=== PATIENT | female | born 2000 | race African-American/Black ===

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

== ENCOUNTER 2022-02-21 22:09 | Emergency (ER) | payer OTHER ==
[2022-02-21 22:25] VITALS: RESP 16; TEMP 98.3
[2022-02-21 22:50] LABS: Appearance,Urine Cloudy (Clear); Bacteria,Urine Moderate /hpf; Bilirubin,Urine Negative (Negative); Blood,Urine Negative (Negative); Color,Urine Yellow; Glucose,Urine (UA) Negative (Negative); Ketones,Urine Negative (Negative); Leukocyte Esterase,Urine Moderate (Negative); Mucus,Urine Many /hpf; Nitrite,Urine Positive (Negative); PH, Urine 6.5 (5.0-8.0); Protein,Urine Trace (Negative); RBC,Urine 1 /hpf (0-5); Specific Gravity,Urine 1.028 (1.001-1.035); Squamous Epithelial Cell,Urine 5 /hpf (0-4); WBC,Urine 5 /hpf (0-5)
[2022-02-22] MEDS ORDERED: CEPHALEXIN 250 MG CAP PO STA (01:31)
[2022-02-22] MEDS ORDERED: ONDANSETRON ODT 4 MG TAB PO STA (01:31)
--- NOTE | 2022-02-22 01:31 | ED ---
General Adult HPI - General Chief complaint: Recheck/Abnormal Lab/Rx Stated complaint: Abd Pain over last week Time Seen by Provider: 02/21/22 23:17 Source: patient, RN notes reviewed Mode of arrival: ambulatory Limitations: no limitations - History of Present Illness Initial comments: 21-year-old female presents to the emergency department for evaluation of lower abdominal/pelvic pressure and painful urination 2 days. Reports she has had nausea over the course of the past week. Expresses concern for possible . Last menstrual period 01/17/2022. Complains of urinary frequency. Denies fever, chills, headache, chest pain, shortness of breath, vomiting, diarrhea, or dysuria. - Related Data Previous Rx's Medication Instructions Recorded Cephalexin [Keflex] 250 mg PO Q6HR 5 Days #20 cap 02/22/22 Pnv No.95/Ferrous Fum/Folic AC 1 each PO DAILY #30 tablet 02/22/22 [ Multivitamin Tablet] Allergies Allergy/AdvReac Type Severity Reaction Status Date / Time No Known Allergies Allergy Verified 02/13/22 17:18 Review of Systems ROS Statement: Those systems with pertinent positive or pertinent negative responses have been documented in the HPI. ROS Other: All systems not noted in ROS Statement are negative. Past Medical History Past Medical History: No Reported History History of Any Multi-Drug Resistant Organisms: None Reported Past Surgical History: No Surgical Hx Reported Past Psychological History: No Psychological Hx Reported Smoking Status: Current every day smoker Past Alcohol Use History: None Reported Past Drug Use History: Marijuana General Exam Limitations: no limitations General appearance: alert, in no apparent distress Respiratory exam: Present: normal lung sounds bilaterally. Absent: respiratory distress, wheezes, rales, rhonchi, stridor Cardiovascular Exam: Present: regular rate, normal rhythm, normal heart sounds. Absent: systolic murmur, diastolic murmur, rubs, gallop, clicks GI/Abdominal exam: Present: soft, normal bowel sounds. Absent: distended, tenderness, guarding, rebound, rigid Back exam: Present: normal inspection. Absent: CVA tenderness (R), CVA tenderness (L) Neurological exam: Present: alert, oriented X3, CN II-XII intact Psychiatric exam: Present: normal affect, normal mood Skin exam: Present: warm, dry, intact, normal color. Absent: rash Course Vital Signs 02/21/22 02/22/22 22:21 01:45 Temperature 98.3 F Pulse Rate 72 78 Respiratory 16 16 Rate Blood Pressure 105/65 112/82 O2 Sat by Pulse 98 98 Oximetry Medical Decision Making - Medical Decision Making This is a 21-year-old female, , who presents to the emergency department for evaluation of dysuria 2 days. Also complained of nausea and requested a test which was positive. Patient's urinalysis is nitrite positive with moderate leukocyte esterase therefore will be treated with Keflex for UTI. She has mild nausea and therefore was given a single dose of Zofran. She is not experiencing any abdominal pain, cramping, or vaginal bleeding/discharge at this time. She is prescribed vitamins and instructed to follow up with her HOT BOX CHECKER to establish care. Return parameters discussed in detail. Patient verbalizes understanding and agrees with this plan. Attending: Holly. - Lab Data Lab Results 02/21/22 02/21/22 Range/Units 22:30 22:30 Urine Color Yellow Urine Appearance Cloudy H (Clear) Urine pH 6.5 (5.0-8.0) Ur Specific [place] 1.028 (1.001-1.035) Urine Protein Trace H (Negative) Urine Glucose (UA) Negative (Negative) Urine Ketones Negative (Negative) Urine Blood Negative (Negative) Urine Nitrite Positive H (Negative) Urine Bilirubin Negative (Negative) Urine Urobilinogen 4.0 (<2.0) mg/dL Ur Leukocyte Esterase Moderate H (Negative) Urine RBC 1 (0-5) /hpf Urine WBC 5 (0-5) /hpf Ur Squamous Epith Cells 5 H (0-4) /hpf Urine Bacteria Moderate H (None) /hpf Urine Mucus Many H (None) /hpf Urine HCG, Qual Detected (Not Detectd) Disposition Clinical Impression: Acute cystitis during in first trimester Disposition: HOME SELF-CARE Condition: Stable Additional Instructions: Take antibiotic as directed. Increase intake of fluids. Obtained vitamin and begin taking. Follow-up with HOT BOX CHECKER for further evaluation and treatment. Return to the emergency department with any new, worsening, or concerning symptoms. Prescriptions: Cephalexin [Keflex] 250 mg PO Q6HR 5 Days #20 cap Pnv No.95/Ferrous Fum/Folic AC [ Multivitamin Tablet] 1 each PO DAILY #30 tablet Is patient prescribed a controlled substance at d/c from ED?: No Referrals: Florence Nuñez DO [Doctor of Osteopathic Medicine] - 1-2 days Time of Disposition: 01:31
[2022-02-22 01:46] VITALS: BP 112/82; PULSE 78
== END 2022-02-22 01:45 | disposition home or self-care (01) ==
LOC: EC 22:09
DX: O23.11 Infections of bladder in pregnancy, first trimester (principal); N30.00 Acute cystitis without hematuria; O99.331 Smoking (tobacco) complicating pregnancy, first trimester; F17.200 Nicotine dependence, unspecified, uncomplicated; Z3A.00 Weeks of gestation of pregnancy not specified
CPT/HCPCS: 81001; 81025; 99284

== ENCOUNTER 2022-04-27 11:46 | Emergency (ER) | payer OTHER ==
[2022-04-27 11:57] VITALS: BP 100/52; PULSE 77; RESP 18; TEMP 98
[2022-04-27] MEDS ORDERED: diphenhydrAMINE 25 MG CAP PO STA (12:35)
--- NOTE | 2022-04-27 13:25 | ED ---
Allergic Reaction HPI - General Chief complaint: Allergic Reaction Stated complaint: swollen upper lip Time Seen by Provider: 04/27/22 12:22 Source: patient Mode of arrival: ambulatory Limitations: no limitations - History of Present Illness Initial Comments: Patient is a 21-year-old female currently 14 weeks presenting with chief complaint of upper lip swelling. Patient states when she woke up this morning she felt a heaviness over her upper lip, she then noticed that it was swelling on inspection. Patient states that throughout the morning the swelling has gone down, but she "just wanted to get checked out". She denies any shortness of breath, wheezing, difficulty swallowing. She denies any pain, rash, fever, chills, nausea, vomiting, chest pain, abdominal pain, history of ALLERGIES. She denies any new foods, medications, products. - Related Data Previous Rx's Medication Instructions Recorded Cephalexin [Keflex] 250 mg PO Q6HR 5 Days #20 cap 02/22/22 Pnv No.95/Ferrous Fum/Folic AC 1 each PO DAILY #30 tablet 02/22/22 [ Multivitamin Tablet] Allergies Allergy/AdvReac Type Severity Reaction Status Date / Time No Known Allergies Allergy Verified 04/27/22 11:56 Review of Systems ROS Statement: Those systems with pertinent positive or pertinent negative responses have been documented in the HPI. ROS Other: All systems not noted in ROS Statement are negative. Past Medical History Past Medical History: No Reported History History of Any Multi-Drug Resistant Organisms: None Reported Past Surgical History: No Surgical Hx Reported Past Psychological History: No Psychological Hx Reported Smoking Status: Current every day smoker Past Alcohol Use History: None Reported Past Drug Use History: Marijuana General Exam Limitations: no limitations General appearance: alert, in no apparent distress Head exam: Present: atraumatic, normocephalic, normal inspection Eye exam: Present: normal appearance, EOMI. Absent: scleral icterus, periorbital swelling ENT exam: Present: mucous membranes moist Expanded Mouth exam: Present: other (Some swelling to the upper lip) Neck exam: Present: normal inspection Respiratory exam: Present: normal lung sounds bilaterally. Absent: respiratory distress, wheezes, rales, rhonchi, stridor Cardiovascular Exam: Present: regular rate, normal rhythm, normal heart sounds. Absent: systolic murmur, diastolic murmur, rubs, gallop, clicks Neurological exam: Present: alert, oriented X3, CN II-XII intact Psychiatric exam: Present: normal affect, normal mood Skin exam: Present: warm, dry, intact, normal color. Absent: rash Course Vital Signs 04/27/22 11:54 Temperature 98.0 F Pulse Rate 77 Respiratory 18 Rate Blood Pressure 100/52 O2 Sat by Pulse 100 Oximetry Medical Decision Making - Medical Decision Making Patient is a 21-year-old female presenting with chief complaint of upper lip swelling. She denies any new foods, medications, products. She denies any pain. She states symptoms have improved throughout the morning without any medication, but she just wanted to ensure everything was okay. She is currently 14 weeks . On examination there is mild swelling to the upper lip. N ormal oropharynx, heart and lungs are clear to auscultation, no indications of difficulty breathing or swallowing. Patient is given some Benadryl. Instructed to follow-up with PCP and SPEECH ASSISTANT. Report back to ER with any new or worsening symptoms. Discussed return parameters answered all questions. May continue taking Benadryl as needed per package instructions. Patient conveyed verbal understanding and agreed to the plan. I discussed this case with my attending Dr. Rojas. Disposition Clinical Impression: Allergic reaction Disposition: HOME SELF-CARE Condition: Good Instructions (If sedation given, give patient instructions): General Allergic Reaction (ED) Additional Instructions: Follow-up with PCP and SPEECH ASSISTANT. Report back to ER with any new or worsening symptoms. Take Benadryl as needed per package instructions. Is patient prescribed a controlled substance at d/c from ED?: No Referrals: Lori Valenzuela MD [Primary Care Provider] - 1-2 days Time of Disposition: 13:25
== END 2022-04-27 13:32 | disposition home or self-care (01) ==
LOC: EC 11:46
DX: O99.712 Diseases of the skin and subcutaneous tissue complicating pregnancy, second trimester (principal); F17.200 Nicotine dependence, unspecified, uncomplicated; Z3A.14 14 weeks gestation of pregnancy
CPT/HCPCS: 99283

== ENCOUNTER 2022-05-01 07:39 | Emergency (ER) | payer OTHER ==
[2022-05-01 07:46] VITALS: BP 116/62; PULSE 61; RESP 18; TEMP 98.2
[2022-05-01] MEDS ORDERED: predniSONE 20 MG TAB PO STA (08:47)
[2022-05-01] MEDS ORDERED: FAMOTIDINE 20 MG TAB PO STA (08:47)
[2022-05-01] MEDS ORDERED: diphenhydrAMINE 50 MG CAP PO STA (08:47)
--- NOTE | 2022-05-01 08:52 | ED ---
General Adult HPI - General Chief complaint: Allergic Reaction Stated complaint: revisit - upper lip swelling Time Seen by Provider: 05/01/22 07:50 Source: patient, family, RN notes reviewed Mode of arrival: ambulatory Limitations: no limitations - History of Present Illness Initial comments: Patient is a pleasant 21-year-old female presenting to the emergency Department with upper lip swelling. Patient was here in emergency Department a couple of days ago with similar symptoms. Benadryl did help significantly. Symptoms started again last night. Patient only has minimal discomfort. No swelling of the lower lip, tongue or throat. No dyspnea. No history of similar symptoms previously. No new exposures. Patient is 14 weeks gravid. No pelvic pain or vaginal bleeding. - Related Data Previous Rx's Medication Instructions Recorded Cephalexin [Keflex] 250 mg PO Q6HR 5 Days #20 cap 02/22/22 Pnv No.95/Ferrous Fum/Folic AC 1 each PO DAILY #30 tablet 02/22/22 [ Multivitamin Tablet] Famotidine [Pepcid] 20 mg PO BID #10 tablet 05/01/22 diphenhydrAMINE [Benadryl] 25 mg PO QID #20 capsule 05/01/22 predniSONE [Deltasone] 20 mg PO DAILY #4 tab 05/01/22 Allergies Allergy/AdvReac Type Severity Reaction Status Date / Time No Known Allergies Allergy Verified 05/01/22 07:45 Review of Systems ROS Statement: Those systems with pertinent positive or pertinent negative responses have been documented in the HPI. ROS Other: All systems not noted in ROS Statement are negative. Constitutional: Denies: fever Eyes: Denies: eye pain ENT: Reports: as per HPI. Denies: ear pain Respiratory: Denies: cough, dyspnea Cardiovascular: Denies: chest pain Endocrine: Denies: fatigue Gastrointestinal: Denies: abdominal pain Genitourinary: Denies: dysuria Musculoskeletal: Denies: back pain Skin: Denies: rash Past Medical History Past Medical History: No Reported History History of Any Multi-Drug Resistant Organisms: None Reported Past Surgical History: No Surgical Hx Reported Past Psychological History: No Psychological Hx Reported Smoking Status: Current every day smoker Past Alcohol Use History: None Reported Past Drug Use History: Marijuana General Exam Limitations: no limitations General appearance: alert, in no apparent distress Head exam: Present: normocephalic Eye exam: Present: normal appearance ENT exam: Present: other (Moderate angioedema of the upper lip alone. No edema of the lower lip or tongue or posterior pharynx or uvula) Respiratory exam: Present: normal lung sounds bilaterally. Absent: respiratory distress, wheezes Cardiovascular Exam: Present: regular rate, normal rhythm GI/Abdominal exam: Present: soft. Absent: tenderness Extremities exam: Present: normal inspection Neurological exam: Present: alert Psychiatric exam: Present: normal affect, normal mood Skin exam: Present: normal color Course Vital Signs 05/01/22 07:41 Temperature 98.2 F Pulse Rate 61 Respiratory 18 Rate Blood Pressure 116/62 O2 Sat by Pulse 100 Oximetry Disposition Clinical Impression: Angioedema Disposition: HOME SELF-CARE Condition: Stable Instructions (If sedation given, give patient instructions): Angioedema (ED) Additional Instructions: Please follow-up with primary care physician as well as [facility] COUNSEL[facility] in the next couple days for recheck. Return for difficulty in breathing, swelling of the throat, tongue or increased swelling of the lips, worsening symptoms or any other concerns. Prescriptions have been sent to pharmacy. Prescriptions: diphenhydrAMINE [Benadryl] 25 mg PO QID #20 capsule predniSONE [Deltasone] 20 mg PO DAILY #4 tab Famotidine [Pepcid] 20 mg PO BID #10 tablet Is patient prescribed a controlled substance at d/c from ED?: No Referrals: Lori Valenzuela MD [Primary Care Provider] - 1-2 days Roselyn Aguilar DO [Doctor of Osteopathic Medicine] - 1-2 days Time of Disposition: 08:50
== END 2022-05-01 09:00 | disposition home or self-care (01) ==
LOC: EC 07:39
DX: T78.3XXA Angioneurotic edema, initial encounter (principal); F17.200 Nicotine dependence, unspecified, uncomplicated; F12.90 Cannabis use, unspecified, uncomplicated
CPT/HCPCS: 99283; J7512

== ENCOUNTER 2024-01-23 15:25 | Inpatient (IN) | payer OTHER ==
[2024-01-23] MEDS ORDERED: TRANEXAMIC 1,000 MG/100ML-NACL 1,000 MG in EMPTY BAG 1 BAG IV PRN (15:53)
[2024-01-23] MEDS ORDERED: miSOPROStoL 200 MCG TAB PO PRN (15:53)
[2024-01-23] MEDS ORDERED: OXYTOCIN 10 UNIT/ML 1 ML VIAL IM PRN (15:53)
[2024-01-23] MEDS ORDERED: LIDOCAINE 0.5% (PF) 5 MG/ML (50 ML SDV) SQ PRN (15:53)
[2024-01-23] MEDS ORDERED: CARBOPROST TROMETHAMINE 250 MCG/ML 1 ML AMP IM PRN (15:53)
[2024-01-23] MEDS ORDERED: METHYLERGONOVINE 0.2 MG/ML 1 ML AMP IM PRN (15:53)
[2024-01-23] MEDS ORDERED: TERBUTALINE 1 MG/ML VIAL SQ PRN (15:53)
[2024-01-23] MEDS: LACTATED RINGERS 1,000 ML IV SCH (16:18)
[2024-01-23] MEDS: AMPICILLIN 2,000 MG in SODIUM CHLORIDE 0.9% 100 ML IVPB STA (16:27)
[2024-01-23 16:34] LABS: Basophils % (A) 0 %; Eosinophils # (A) 0.2 k/uL (0-0.7); Eosinophils % (A) 1 %; HCT 29.4 % (34.0-46.0); HGB 9.6 gm/dL (11.4-16.0); Lymphocytes # (A) 1.9 k/uL (1.0-4.8); Lymphocytes % (A) 10 %; MCHC 32.5 g/dL (31.0-37.0); MCV 89.3 fL (80.0-100.0); Mean Platelet Volume 7.1; Monocytes % (A) 5 %; Neutrophils # (A) 15.4 k/uL (1.3-7.7); Neutrophils % (A) 82 %; Platelet Count 328 k/uL (150-450); RBC 3.29 m/uL (3.80-5.40); RDW 13.3 % (11.5-15.5); WBC 18.7 k/uL (3.8-10.6)
[2024-01-23 18:07] LABS: Amphetamine Screen,Urine Not Detected (NotDetected); Barbiturate Screen,Urine Not Detected (NotDetected); Benzodiazepines Screen,Urine Not Detected (NotDetected); Cocaine Screen,Urine Detected (NotDetected); Methadone Screen, Urine Not Detected (NotDetected); Opiate Screen,Urine Not Detected (NotDetected); Oxycodone Screen, Urine Not Detected (NotDetected); Phencyclidine Screen,Urine Not Detected (NotDetected); Tricyclic Antidepressant,Urine Not Detected (NotDetected); Urn Cannabinoid Scrn Detected (NotDetected)
[2024-01-23] MEDS: OXYTOCIN 30 UNITS/500 ML NS 30 UNIT in SALINE 1 500ML.BAG IV SCH (20:22)
[2024-01-23] MEDS ORDERED: SIMETHICONE 80 MG CHEWABLE PO PRN (20:38)
[2024-01-23] MEDS ORDERED: HYDROCORTISONE 2.5% RECTAL CREAM 30 GM TUBE RECTAL PRN (20:38)
[2024-01-23] MEDS ORDERED: diphenhydrAMINE 25 MG CAP PO PRN (20:38)
[2024-01-23] MEDS ORDERED: diphenhydrAMINE 50 MG CAP PO PRN (20:38)
[2024-01-23] MEDS ORDERED: diphenhydrAMINE 50 MG/ML 1 ML VIAL IVP PRN ×2 (20:38)
[2024-01-23] MEDS ORDERED: LANOLIN CREAM 1 GM TUBE TOPICAL PRN (20:38)
[2024-01-23] MEDS ORDERED: ZOLPIDEM 5 MG TAB PO PRN (20:38)
[2024-01-23] MEDS ORDERED: BENZOCAINE/MENTHOL SPRAY 1 GM/SPRAY AEROSOL TOPICAL PRN (20:38)
[2024-01-23] MEDS: IBUPROFEN 600 MG TAB PO PRN (20:53)
[2024-01-23] MEDS: AMPICILLIN 1,000 MG in SODIUM CHLORIDE 0.9% 50 ML IVPB SCH (21:43)
[2024-01-24] MEDS: ACETAMINOPHEN TAB 325 MG TAB PO PRN (00:04)
[2024-01-24 04:51] VITALS: RESP 16
[2024-01-24 05:30] LABS: Basophils % (A) 0 %; Eosinophils # (A) 0.1 k/uL (0-0.7); Eosinophils % (A) 1 %; HGB 9.2 gm/dL (11.4-16.0); Lymphocytes # (A) 2.2 k/uL (1.0-4.8); Lymphocytes % (A) 14 %; MCH 29.3 pg (25.0-35.0); MCHC 32.8 g/dL (31.0-37.0); MCV 89.5 fL (80.0-100.0); Mean Platelet Volume 7.1; Monocytes % (A) 6 %; Neutrophils # (A) 12.3 k/uL (1.3-7.7); Neutrophils % (A) 78 %; Platelet Count 308 k/uL (150-450); RBC 3.13 m/uL (3.80-5.40); RDW 13.2 % (11.5-15.5); WBC 15.9 k/uL (3.8-10.6)
[2024-01-24] MEDS: SENNOSIDES-DOCUSATE SODIUM 1 EACH TAB PO SCH (10:32)
--- NOTE | 2024-01-24 11:20 | P.HPOB ---
History of Present Illness H&P Date: 01/23/24 Chief Complaint: normal labor 23 year old presents at 36 weeks 6 days with Spontaneous rupture membranes and in active labor. Her cervix was 5-7 cm dilated, 80% effaced, -2 station. She was adamaris every 6-7 minutes. heart tones 135 with moderate variability and reactive. Review of Systems All systems: negative Constitutional: Denies chills, Denies fever Eyes: denies blurred vision, denies pain Ears, nose, mouth and throat: Denies headache, Denies sore throat Cardiovascular: Denies chest pain, Denies shortness of breath Respiratory: Denies cough Gastrointestinal: Denies abdominal pain, Denies diarrhea, Denies nausea, Denies vomiting Genitourinary: Denies dysuria, Denies hematuria Musculoskeletal: Denies myalgias Integumentary: Denies pruritus, Denies rash Neurological: Denies numbness, Denies weakness Psychiatric: Denies anxiety, Denies depression Endocrine: Denies fatigue, Denies weight change Past Medical History Past Medical History: No Reported History Additional Past Medical History / Comment(s): Obstetric history: She has had 2 previous vaginal deliveries. She got care with this baby at [facility] in [place]. 8 positive antibodies negative rubella immune, hepatitis B negative, HIV negative. She has been positive for cocaine and marijuana in the past and is positive for that again today. History of Any Multi-Drug Resistant Organisms: None Reported Past Surgical History: No Surgical Hx Reported Past Anesthesia/Blood Transfusion Reactions: No Reported Reaction Past Psychological History: No Psychological Hx Reported Smoking Status: Current every day smoker Past Alcohol Use History: None Reported Past Drug Use History: Marijuana Medications and Allergies Home Medications Medication Instructions Recorded Confirmed Type Pnv No.95/Ferrous Fum/Folic AC 1 each PO DAILY #30 tablet 02/22/22 01/23/24 Rx [ Multivitamin Tablet] Allergies Allergy/AdvReac Type Severity Reaction Status Date / Time No Known Allergies Allergy Verified 01/23/24 15:41 Exam Osteopathic Statement: *. No significant issues noted on an osteopathic structural exam other than those noted in the History and Physical/Consult. Vital Signs Temp Pulse Resp BP Pulse Ox 01/24/24 07:55 98.7 F 80 16 108/52 01/24/24 04:00 98.2 F 71 16 103/56 98 01/24/24 00:00 97.7 F 72 18 102/60 100 01/23/24 22:31 97.7 F 61 18 133/82 01/23/24 22:16 69 18 138/81 01/23/24 22:01 55 L 20 122/76 01/23/24 21:45 78 18 133/60 01/23/24 21:31 64 18 121/78 01/23/24 21:16 77 18 138/89 01/23/24 21:01 78 18 133/84 01/23/24 20:46 67 18 127/78 01/23/24 20:31 96.5 F L 75 139/65 01/23/24 16:21 98.1 F 83 18 133/76 01/23/24 15:49 97.4 F L 95 16 130/74 Intake and Output 01/23/24 01/24/24 01/24/24 22:59 06:59 14:59 Intake Total 183.7 Output Total 200 Balance -16.3 Intake: Intake, IV Titration 183.7 Amount Oxytocin 30 Units/500 ml 183.7 Ns 30 unit In Saline 1 500ml.bag @ Per Protocol IV .Q0M [facility] Rx#:[id number] Output: Output, Quantitative 200 Blood Loss Other: # Voids 1 1 Weight 75.75 kg Heart: Regular rate and rhythm Lungs: Clear to auscultation bilaterally Abdomen: Soft, nontender Extremities: Negative Homans sign Results Result Diagrams: 01/24/24 04:52 Abnormal Lab Results - Last 24 Hours (Table) 01/23/24 01/23/24 01/24/24 Range/Units 16:15 17:28 04:52 WBC 18.7 H 15.9 H (3.8-10.6) k/uL RBC 3.29 L 3.13 L (3.80-5.40) m/uL Hgb 9.6 L 9.2 L (11.4-16.0) gm/dL Hct 29.4 L 28.0 L (34.0-46.0) % Neutrophils # 15.4 H 12.3 H (1.3-7.7) k/uL Urine Cocaine Screen Detected H (NotDetected) U Marijuana (THC) Screen Detected H (NotDetected) Assessment and Plan (1) labor Current Visit: Yes Status: Acute Code(s): O60.00 - LABOR WITHOUT D ELIVERY, UNSPECIFIED TRIMESTER SNOMED Code(s): 8162342 (2) premature rupture of membranes Current Visit: Yes Status: Acute Code(s): O42.919 - PRETRM MARTIN ROM, UNSP TIME BETW RUPT AND ONST LABR, UNSP TRI SNOMED Code(s): 277793213 Plan: 1. Antibiotics for GBS prophylaxis 2. Expectant management 3. Anticipate normal vaginal delivery
--- NOTE | 2024-01-24 11:21 | P.PROBDLV ---
Vaginal Delivery Note - . Vaginal Delivery Note: 23 year old presents at 36 weeks 2 days with Spontaneous rupture membranes and in active labor. Her cervix was 5-7 cm dilated, 80% effaced, -2 station. She was adamaris every 6-7 minutes. heart tones 135 with moderate variability and reactive. Her water broke around 1500 and her fluid was clear. She slowly got more uncomfortable and was adamaris every 3-5 minutes. When her cervix was 8 cm dilated she was very uncomfortable but dealing with the contractions well. She was soon complete and pushed a viable male over intact perineum at 2019. Head delivered MAYA, anterior shoulder delivered gentle downward guidance follow-up by posterior shoulder and rest of body. Nose and mouth bulb suctioned, cord clamped and cut, placed on mother's abdomen. Apgars 8, 9, weight 5 lbs. 10 oz. Placenta delivered spontaneously, intact with three-vessel cord at 2021. Gen., cervix, perineum inspected. No lacerations noted. Estimated blood loss 200 mL. Mother and baby in stable condition.
--- NOTE | 2024-01-24 11:23 | P.PNOBGVD ---
Subjective - Subjective Principal diagnosis: Status post normal vaginal delivery day #1 Interval history: Patient seen and examined. Denies nausea, vomiting, chest pain, shortness of breath or calf pain. Patient says that she did smoke some marijuana during but denies cocaine use though was positive and her drug screen. Patient reports: Reports appetite normal, Reports voiding normally, Reports pain well controlled, Reports ambulating normally Melvin: doing well Objective - Latest Vital Signs Latest vital signs: Vital Signs Temp Pulse Resp BP Pulse Ox 01/24/24 07:55 98.7 F 80 16 108/52 01/24/24 04:00 98.2 F 71 16 103/56 98 01/24/24 00:00 97.7 F 72 18 102/60 100 01/23/24 22:31 97.7 F 61 18 133/82 01/23/24 22:16 69 18 138/81 01/23/24 22:01 55 L 20 122/76 01/23/24 21:45 78 18 133/60 01/23/24 21:31 64 18 121/78 01/23/24 21:16 77 18 138/89 01/23/24 21:01 78 18 133/84 01/23/24 20:46 67 18 127/78 01/23/24 20:31 96.5 F L 75 139/65 01/23/24 16:21 98.1 F 83 18 133/76 01/23/24 15:49 97.4 F L 95 16 130/74 Intake and Output 01/23/24 01/24/24 01/24/24 22:59 06:59 14:59 Intake Total 183.7 Output Total 200 Balance -16.3 Intake: Intake, IV Titration 183.7 Amount Oxytocin 30 Units/500 ml 183.7 Ns 30 unit In Saline 1 500ml.bag @ Per Protocol IV .Q0M [facility] Rx#:[id number] Output: Output, Quantitative 200 Blood Loss Other: # Voids 1 1 Weight 75.75 kg - Exam Lungs: bilateral: normal Chest: Normal S1, Normal S2 Extremities: Present: normal Abdomen: Present: normal appearance, soft Uterus: Present: normal, firm - Labs Labs: Abnormal Lab Results - Last 24 Hours (Table) 01/23/24 01/23/24 01/24/24 Range/Units 16:15 17:28 04:52 WBC 18.7 H 15.9 H (3.8-10.6) k/uL RBC 3.29 L 3.13 L (3.80-5.40) m/uL Hgb 9.6 L 9.2 L (11.4-16.0) gm/dL Hct 29.4 L 28.0 L (34.0-46.0) % Neutrophils # 15.4 H 12.3 H (1.3-7.7) k/uL Urine Cocaine Screen Detected H (NotDetected) U Marijuana (THC) Screen Detected H (NotDetected) Assessment and Plan (1) labor Current Visit: Yes Status: Acute Code(s): O60.00 - LABOR WITHOUT DELIVERY, UNSPECIFIED TRIMESTER SNOMED Code(s): 0767352 (2) premature rupture of membranes Current Visit: Yes Status: Acute Code(s): O42.919 - PRETRM MARTIN ROM, UNSP TIME BETW RUPT AND ONST LABR, UNSP TRI SNOMED Code(s): 133750856 Plan: 1. Continue care
--- NOTE | 2024-01-25 08:14 | P.DS ---
Providers Date of admission: 01/23/24 15:49 Expected date of discharge: 01/25/24 Attending physician: Florence Nuñez Primary care physician: Stated None - Discharge Diagnosis(es) (1) labor Current Visit: Yes Status: Resolved (2) premature rupture of membranes Current Visit: Yes Status: Resolved (3) Status post normal delivery Current Visit: Yes Status: Acute Hospital Course: Patient presented with spontaneous rupture of membranes and in labor. She underwent a normal vaginal delivery. Her UDS was positive for cocaine and marijuana. The baby is in the nursery for an MELVI scoring. Patient denies nausea, vomiting, chest pain, shortness of breath or calf pain. She'll be discharged home day #2 in stable condition to follow-up with me in 6 weeks. Plan - Discharge Summary New Discharge Prescriptions: New Ibuprofen [Motrin] 600 mg PO Q6HR PRN #30 tab PRN Reason: Mild Pain (Scale 1 To 3) No Action Pnv No.95/Ferrous Fum/Folic AC [ Multivitamin Tablet] 1 each PO DAILY #30 tablet Discharge Medication List Pnv No.95/Ferrous Fum/Folic AC [ Multivitamin Tablet] 1 each PO DAILY #30 tablet 02/22/22 [Rx] Ibuprofen [Motrin] 600 mg PO Q6HR PRN #30 tab 01/25/24 [Rx] Follow up Appointment(s)/Referral(s): Florence Nuñez DO [Doctor of Osteopathic Medicine] - 6 Weeks Discharge Disposition: HOME SELF-CARE
--- NOTE | 2024-01-25 08:19 | P.MSEPDOC ---
Presenting Problems - Arrival Data Date of Arrival on Unit: 01/23/24 Time of Arrival on Unit: 15:30 Mode of Transport: Wheelchair - Complaint OB-Reason for Admission/Chief Complaint: Rule Out SROM Comment: srom , possitive amisure. 37 1/7 weeks. was to deliver at [facility]. contx and dilated 4 cm Medical History - Information : 3 Para: 1 Term: 1 : 0 Abortions: Spontaneous or Elective: 0 Number of Living Children: 0 - Gestational Age Gestational Age by KATI (wks/days): 37 Weeks and 1 Days - History Complications: Smoker, Hx. Substance Abuse Comment: thc use with preg. Review of Systems - Review of Systems Constitutional: No problems Breast: No problems ENT: No problems Cardiovascular: No problems Respiratory: No problems Gastrointestinal: No problems Genitourinary: No problems Musculoskeletal: No problems Neurological: No problems Skin: No problems Vital Signs - Temperature Temperature: 98.2 F Temperature Source: Oral - Pulse Right Radial Pulse Rate: 83 Pulse Assessment Method: Automatic Cuff - Respirations Respiratory Rate: 16 Oxygen Delivery Method: Room Air - Blood Pressure Right Arm Blood Pressure: 121/79 Blood Pressure Mean: 93 Blood Pressure Source: Automatic Cuff Medical Screen Scoring - Cervical Exam Dilation (cm): 4 Effacement (%): 80 Membranes: Ruptured - Uterine Contractions Intensity: Mild Resting: Soft to palpation - Assessment - Baby A Baseline FHR: 130 Heart Rate - NICHD Category: Category I (Normal) NST: Reactive Physician Notification - Physician Notified New Order Received: Yes - Notification Comment Comment: reported UDS pos in July 2023( visit) and today for Cocaine and THC. Orders received to admit infant to the L1N 1 hr after delivery for MELVI per protocol. Maternal Triage Index - Non-Urgent/Priority 4 Non-Urgent Priority 4: Yes Criteria Met for Priority 4: srom. dilated 4cm , contx Disposition - Disposition OB Disposition: Admit I agree with the RN Medical Screening Exam: Yes Case reviewed; plan agreed upon as documented in EMR&OBIX.: Yes Diagnosis: ENCOUNTER FOR FULL-TERM UNCOMPLICATED DELIVERY
[2024-01-25 08:30] VITALS: BP 121/79; PULSE 83; TEMP 98.2
== END 2024-01-25 09:30 | disposition home or self-care (01) | DRG 560 ==
LOC: FBPOP 15:25 → 4FBP 15:49
PROVIDERS: ADMIT Obstetrics & Gynecology; ATTEND Obstetrics & Gynecology
PROC: 10E0XZZ Delivery of Products of Conception, External Approach (ICD-10-PCS; principal; 2024-01-23)
DX: O42.913 Preterm premature rupture of membranes, unspecified as to length of time between rupture and onset of labor, third trimester (principal); F12.90 Cannabis use, unspecified, uncomplicated; F17.210 Nicotine dependence, cigarettes, uncomplicated; O60.14X0 Preterm labor third trimester with preterm delivery third trimester, not applicable or unspecified; O99.324 Drug use complicating childbirth; O99.334 Smoking (tobacco) complicating childbirth; Z37.0 Single live birth; Z3A.36 36 weeks gestation of pregnancy; F14.90 Cocaine use, unspecified, uncomplicated
CPT/HCPCS: 59025; 80306; 85025; 86850; 86900; 86901; 88307; 99213

== ENCOUNTER 2025-03-09 20:33 | Emergency (ER) | payer OTHER ==
--- NOTE | 2025-03-09 21:10 | ED ---
Female Urogenital HPI - General Chief complaint: Vaginal Bleeding Stated complaint: Vaginal Bleeding, Cramps Time Seen by Provider: 03/09/25 21:09 Source: patient, RN notes reviewed Mode of arrival: ambulatory Limitations: no limitations - History of Present Illness Initial comments: 24-year-old G4, P3 female presenting to the ER for evaluation of vaginal bleeding. Patient states the first day of her last menstrual cycle was 02-25-2025. She states 2 days ago she took a test which was positive. Upon waking up today patient noted to have light brown spotting. She states throughout the day this has increased and she is changing a pad every 1-2 hours. Patient also was endorsing lower abdominal cramping and back cramping. She denies any fevers, chills, nausea, vomiting, chest pain, shortness of breath, urinary complaints, change in bowel habits or peripheral edema. - Related Data Previous Rx's Medication Instructions Recorded Pnv No.95/Ferrous Fum/Folic AC 1 each PO DAILY #30 tablet 02/22/22 [ Multivitamin Tablet] Ibuprofen [Motrin] 600 mg PO Q6HR PRN #30 tab 01/25/24 Kdu-Qhlh-Aofod Acid 1 each PO DAILY #30 cap 03/10/25 [-U Capsule] Allergies Allergy/AdvReac Type Severity Reaction Status Date / Time No Known Allergies Allergy Verified 03/09/25 20:42 Review of Systems ROS Statement: Those systems with pertinent positive or pertinent negative responses have been documented in the HPI. ROS Other: All systems not noted in ROS Statement are negative. Past Medical History Past Medical History: No Reported History Additional Past Medical History / Comment(s): Obstetric history: She has had 2 previous vaginal deliveries. She got care with this baby at [facility] in [place]. 8 positive antibodies negative rubella immune, hepatitis B negative, HIV negative. She has been positive for cocaine and marijuana in the past and is positive for that again today. History of Any Multi-Drug Resistant Organisms: None Reported Past Surgical History: No Surgical Hx Reported Past Anesthesia/Blood Transfusion Reactions: No Reported Reaction Past Psychological History: No Psychological Hx Reported Smoking Status: Current every day smoker Past Alcohol Use History: None Reported Past Drug Use History: Marijuana General Exam Limitations: no limitations General appearance: alert, in no apparent distress Respiratory exam: Present: normal lung sounds bilaterally. Absent: respiratory distress, wheezes, rales, rhonchi, stridor Cardiovascular Exam: Present: regular rate, normal rhythm, normal heart sounds. Absent: systolic murmur, diastolic murmur, rubs, gallop, clicks GI/Abdominal exam: Present: soft, tenderness (Suprapubic), normal bowel sounds Extremities exam: Present: normal inspection, full ROM, normal capillary refill. Absent: tenderness, pedal edema, joint swelling, calf tenderness Neurological exam: Present: alert, oriented X3, CN II-XII intact Skin exam: Present: warm, dry, intact, normal color. Absent: rash Course Vital Signs 03/09/25 03/10/25 20:39 03:05 Temperature 98.3 F 98.4 F Pulse Rate 77 66 Respiratory 17 18 Rate Blood Pressure 112/80 116/66 O2 Sat by Pulse 99 100 Oximetry - Reevaluation(s) Reevaluation #1: 03/10/25 03:58 Case discussed with on-call [employer], Dr. Tran. She advised on repeat hCG in 48 hours and repeat ultrasounds outpatient Medical Decision Making - Medical Decision Making Was pt. sent in by a medical professional or institution (, PA, ANIMAL PATHOLOGIST, urgent care, hospital, or [place] health care facility...) When possible be specific @ -[No] Did you speak to anyone other than the patient for history (EMS, parent, family, police, friend...)? What history was obtained from this source @ -[No] Did you review nursing and triage notes (agree or disagree)? Why? @ -[I reviewed and agree with nursing and triage notes] Were old charts reviewed (outside hosp., previous admission, EMS record, old EKG, old radiological studies, urgent care reports/EKG's, [place] health care facility records)? Report findings @ -Blood type reviewed collected on 01-23-2024 blood type B+. Differential Diagnosis (chest pain, altered mental status, abdominal pain women, abdominal pain men, vaginal bleeding, weakness, fever, dyspnea, syncope, headache, dizziness, GI bleed, back pain, seizure, CVA, palpatations, mental health, musculoskeletal)? @ -Differential Vaginal Bleeding:Spontaneous , threatened , molar , ectopic , bloody show, incompetent cervix, abruptioplacenta, placenta previa, uterine rupture, dysfunctional uterine bleeding, hemorrhage, uterine fibroids, this is not meant to be an all-inclusive list. EKG interpreted by me (3pts min.). @ -[None done X-rays interpreted by me (1pt min.). @ -[None done] CT interpreted by me (1pt min.). @ -[None done] U/S interpreted by me (1pt. min.). @ -Obstetrical ultrasound remarkable for a 2.6 cm right adnexal cystic and solid lesion. Could represent corpus luteal cyst or ectopic . No definitive right ovarian tissue. Heterogeneous 1.9 cm left ovarian lesion also present. No intrauterine gestation. No left ovarian torsion No left ovarian torsion. What testing was considered but not performed or refused? (CT, X-rays, U/S, labs)? Why? @ -[None] What meds were considered but not given or refused? Why? @ -[None] Did you discuss the management of the patient with other professionals (professionals i.e. , PA, ANIMAL PATHOLOGIST, lab, RT, psych nurse, social services aide, golf professional, teacher, public health officer, assistant case manager)? Give summary @ -Discussed with on-call [employer],Dr. Tran. She advised on repeat hCG in 48 hours along with close outpatient follow-up for repeat ultrasounds Was smoking cessation discussed for >3mins.? @ -[No] Was critical care preformed (if so, how long)? @ -[No] Were there social determinants of health that impacted care today? How? (Homelessness, low income, unemployed, alcoholism, drug addiction, transportation, low edu. Level, literacy, decrease access to med. care, residential, rehab)? @ -[No] Was there de-escalation of care discussed even if they declined (Discuss DNR or withdrawal of care, Hospice)? DNR status @ -[No] What co-morbidities impacted this encounter? (DM, HTN, Smoking, COPD, CAD, Cancer, CVA, ARF, Chemo, Hep., AIDS, mental health diagnosis, sleep apnea, morbid obesity)? @ -[None] Was patient admitted / discharged? Hospital course, mention meds given and route, prescriptions, significant lab abnormalities, going to OR and other pertinent info. @ -Discharge. 24-year-old G4, P3 female presented to ER for evaluation of vaginal bleeding. Vital signs stable. Patient had no signs of acute distress nontoxic-appearing. Pelvic exam deferred as patient is roomed in the hallway. Studies obtained showing a stable hemoglobin of 12.1. Serum hCG 1986.8. Urinalysis is hemorrhagic likely contaminated from vaginal bleeding. Blood type B+, 01/22/25, RhoGAM not indicated. US 0.6 cm right adnexal cystic and solid lesion. Undiagnosed new problem with uncertain prognosis? @ -[No] Drug Therapy requiring intensive monitoring for toxicity (Heparin, Nitro, Insulin, Cardizem)? @ -[No] Were any procedures done? @ -[No] Diagnosis/symptom? @ -[default] Acute, or Chronic, or Acute on Chronic? @ -[default] Uncomplicated (without systemic symptoms) or Complicated (systemic symptoms)? @ -[default] Side effects of treatment? @ -[No] Exacerbation, Progression, or Severe Exacerbation? @ -[No] Poses a threat to life or bodily function? How? (Chest pain, [place], [place], pneumonia, PE, COPD, DKA, ARF, appy, cholecystitis, CVA, Diverticulitis, Homicidal, Suicidal, threat to staff... and all critical care pts) @ -[No] - Lab Data Result diagrams: 03/09/25 21:23 03/09/25 21:23 Lab Results 03/09/25 03/09/25 03/09/25 Range/Units 21:23 21:23 21:23 WBC 9.96 (4.50-10.00) 10*3/uL RBC 4.12 (4.10-5.20) 10*6/uL Hgb 12.1 (12.0-15.0) g/dL Hct 36.4 L (37.2-46.3) % MCV 88.3 (80.0-97.0) fL MCH 29.4 (27.0-32.0) pg MCHC 33.2 (32.0-37.0) g/dL Plt Count 368 (140-440) 10*3/uL MPV 8.6 L (9.5-12.2) fL Immature Gran % (Auto) 0.4 % Neutrophils % 60.4 % Lymphocytes % 26.4 % Monocytes % 8.5 % Eosinophils % 3.8 % Basophils % 0.5 % Immature Gran # 0.04 (0.00-0.04) 10*3/uL Neutrophils # 6.01 (1.80-7.70) 10*3/uL Lymphocytes # 2.63 (0.90-5.00) 10*3/uL Monocytes # 0.85 (0.20-1.00) 10*3/uL Eosinophils # 0.38 H (0.04-0.35) 10*3/uL Basophils # 0.05 (0.00-0.10) 10*3/uL Sodium 139 (137-145) mmol/L Potassium 3.8 (3.5-5.1) mmol/L Chloride 104 (98-107) mmol/L Carbon Dioxide 23 (22-30) mmol/L Anion Gap 12 mmol/L BUN 16 (7-17) mg/dL Creatinine 0.70 (0.52-1.04) mg/dL Est GFR (CKD-EPI)AfAm >90 (>60 ml/min/1.73 sqM) Est GFR (CKD-EPI)NonAf >90 (>60 ml/min/1.73 sqM) Glucose 84 (74-99) mg/dL Calcium 9.7 (8.4-10.2) mg/dL Total Bilirubin 0.8 (0.2-1.3) mg/dL AST 26 (14-36) U/L ALT 13 (4-34) U/L Alkaline Phosphatase 59 (38-126) U/L Total Protein 7.3 (6.3-8.2) g/dL Albumin 4.4 (3.5-5.0) g/dL HCG, Quant 1986.8 mIU/mL Urine Color Yellow Urine Appearance Cloudy H (Clear) Urine pH 6.0 (5.0-8.0) Ur Specific [place] 1.032 (1.001-1.035) Urine Protein Trace H (Negative) Urine Glucose (UA) Negative (Negative) Urine Ketones Negative (Negative) Urine Blood Large H (Negative) Urine Nitrite Negative (Negative) Urine Bilirubin Negative (Negative) Urine Urobilinogen 8.0 (<2.0) mg/dL Ur Leukocyte Esterase Moderate H (Negative) Urine RBC >182 H (0-5) /hpf Urine WBC 62 H (0-5) /hpf Ur Squamous Epith Cells 9 H (0-4) /hpf Urine Mucus Moderate H (None) /hpf Disposition Clinical Impression: Threatened Disposition: HOME SELF-CARE Condition: Stable Additional Instructions: Have repeat hcg drawn in 48 hours. Follow-up closely with [employer] for repeat ultrasounds. Return to the ER for any new or worsening concerns Prescriptions: Gsk-Hkui-Brhzy Acid [-U Capsule] 1 each PO DAILY #30 cap Is patient prescribed a controlled substance at d/c from ED?: No Referrals: Lori Valenzuela MD [Primary Care Provider] - 1-2 days Laxmi Tran MD [STAFF PHYSICIAN] - 1-2 days Time of Disposition: 03:57
[2025-03-09 21:28] LABS: Basophils # (A) 0.05 10*3/uL (0.00-0.10); Basophils % (A) 0.5 %; Eosinophils # (A) 0.38 10*3/uL (0.04-0.35); Eosinophils % (A) 3.8 %; HCT 36.4 % (37.2-46.3); HGB 12.1 g/dL (12.0-15.0); Lymphocytes # (A) 2.63 10*3/uL (0.90-5.00); Lymphocytes % (A) 26.4 %; MCH 29.4 pg (27.0-32.0); MCHC 33.2 g/dL (32.0-37.0); MCV 88.3 fL (80.0-97.0); Mean Platelet Volume 8.6 fL (9.5-12.2); Monocytes # (A) 0.85 10*3/uL (0.20-1.00); Monocytes % (A) 8.5 %; Neutrophils # (A) 6.01 10*3/uL (1.80-7.70); Neutrophils % (A) 60.4 %; Platelet Count 368 10*3/uL (140-440); RBC 4.12 10*6/uL (4.10-5.20); RDW 14.7 % (11.5-14.5); WBC 9.96 10*3/uL (4.50-10.00)
[2025-03-09 21:33] LABS: Appearance,Urine Cloudy (Clear); Bilirubin,Urine Negative (Negative); Blood,Urine Large (Negative); Color,Urine Yellow; Glucose,Urine (UA) Negative (Negative); Ketones,Urine Negative (Negative); Leukocyte Esterase,Urine Moderate (Negative); Mucus,Urine Moderate /hpf; Nitrite,Urine Negative (Negative); Protein,Urine Trace (Negative); RBC,Urine >182 /hpf (0-5); Specific Gravity,Urine 1.032 (1.001-1.035); Squamous Epithelial Cell,Urine 9 /hpf (0-4); WBC,Urine 62 /hpf (0-5)
[2025-03-09 22:11] LABS: ALT 13 U/L (4-34); AST 26 U/L (14-36); African American GFR (CKD) >90 (>60 ml/min/1.73 sqM); Albumin 4.4 g/dL (3.5-5.0); Alkaline Phosphatase 59 U/L (38-126); Anion Gap 12 mmol/L; Blood Urea Nitrogen 16 mg/dL (7-17); Calcium 9.7 mg/dL (8.4-10.2); Carbon Dioxide 23 mmol/L (22-30); Chloride 104 mmol/L (98-107); Glucose 84 mg/dL (74-99); Non-African American GFR(CKD) >90 (>60 ml/min/1.73 sqM); Potassium 3.8 mmol/L (3.5-5.1); Sodium 139 mmol/L (137-145); Total Bilirubin 0.8 mg/dL (0.2-1.3); Total Protein 7.3 g/dL (6.3-8.2)
[2025-03-09 22:26] LABS: HCG,Quantitative Serum 1986.8 mIU/mL
[2025-03-10 03:06] VITALS: RESP 18; TEMP 98.4
--- NOTE | 2025-03-10 03:41 | US ---
EXAM: US Pelvis Transabdominal and Transvaginal, Complete CLINICAL HISTORY: Vaginal bleeding and cramping TECHNIQUE: Real-time complete transabdominal and transvaginal pelvic ultrasound with image documentation. Transvaginal imaging was used for better evaluation of the endometrium and adnexa. COMPARISON: No relevant prior studies available. FINDINGS: Uterus/cervix: The uterus measures 8.6 x 4.3 x 4.8 cm. The endometrial stripe is normal measuring 0.9 cm. No myometrial mass. No intrauterine gestation. Right ovary: There is a 2.6 cm right adnexal cystic and solid lesion. No definitive right ovarian tissue. Left ovary: A heterogeneous 1.9 cm left ovarian lesion is also present. The left ovary measures 3.7 x 2 point 3 x 2.1 cm. No torsion. Free fluid: No free fluid. Bladder: Unremarkable as visualized. Wall is normal thickness for degree of distention. IMPRESSION: 1. There is a 2.6 cm right adnexal cystic and solid lesion. This could represent a corpus luteal cyst or ectopic . Recommend close Interval follow-up beta HCG and pelvic ultrasound. 2. No definitive right ovarian tissue. 3. A heterogeneous 1.9 cm left ovarian lesion is also present. This could represent a corpus luteal cyst, hemorrhagic cyst or endometrioma. Attention on follow-up is recommended. 4. No intrauterine gestation. <MYCVCSECTION> Communications: 03/10/25 03:47 Verify Receipt Verified receipt with BELGICA Quinones in ER for Dr. Dash on 03/10 03:47 (-04:00)
[2025-03-10 04:07] VITALS: BP 117/79; PULSE 75
== END 2025-03-10 04:21 | disposition home or self-care (01) ==
LOC: EC 20:33
DX: O20.0 Threatened abortion (principal); O99.331 Smoking (tobacco) complicating pregnancy, first trimester; F17.200 Nicotine dependence, unspecified, uncomplicated; Z3A.00 Weeks of gestation of pregnancy not specified
CPT/HCPCS: 36415; 76801; 76817; 80053; 81001; 84702; 85025; 87086; 99284